=== PATIENT | male | born 1985 | race Caucasian/White ===

== ENCOUNTER → 2024-04-05 | Outpatient (CLI) | payer OTHER, SELFPAY ==
--- NOTE | 2024-04-05 | XR_ITS ---
Examination: Sinus series 4 views Technique: Kb Guan lateral submentovertex sinus series 4 views Exam date and time: April 05, 2024 0723 hrs. Indications: Sinus pressure and pain months Findings: Opacity involving the frontal ethmoid air cells Mucosal thickening up to 12 mm in the maxillary antra Mild haziness in the sphenoid air cells No fluid levels Impression: Chronic pansinusitis
== END | disposition home or self-care (01) ==
LOC: CDIM 07:10
PROVIDERS: PCP Family Medicine; Referring Provider Allergy & Immunology; Visit Provider Allergy & Immunology
DX: J32.4 Chronic pansinusitis (principal)
CPT/HCPCS: 70220

== ENCOUNTER → 2024-07-20 | Outpatient (CLI) | payer OTHER, SELFPAY ==
--- NOTE | 2024-07-20 08:39 | XR_ITS ---
Examination: CT maxillofacial, without intravenous contrast. 2-D sagittal reconstructions. 3-D reconstructions. Date and time of exam:July 20, 2024 0857 hours INDICATIONS: Sinus pressure and pain nasal congestion months CTDI: vol (mGy):8.29 DLP: (mGycm):109 Technique: Multiple axial images of maxillofacial region, 3.0 mm slice thickness. 2-D sagittal and coronal reconstructions. 3-D reconstructions. Low dose protocols were performed. One or more of the following dose reduction techniques were used; automated exposure control, adjustment of the mA and/or KV according to patient size, use of iterative reconstruction technique. Findings: Mucosal thickening in the frontal air cells Prominent opacity in the sphenoid air cells with occlusion of the ostiomeatal complexes. Fluid level in the right maxillary antrum Trace mucosal disease in the sphenoid air cells beginning No nasopharyngeal mass IMPRESSION: Mcneal sinusitis including acute right maxillary sinusitis
== END | disposition home or self-care (01) ==
LOC: CCTX 08:26
PROVIDERS: PCP Allergy & Immunology; Referring Provider Allergy & Immunology; Visit Provider Allergy & Immunology
DX: J32.4 Chronic pansinusitis (principal); J01.00 Acute maxillary sinusitis, unspecified; J30.1 Allergic rhinitis due to pollen
CPT/HCPCS: 70486